=== PATIENT | female | born 1945 | race Caucasian/White ===

== ENCOUNTER 2016-10-28 18:16 | Emergency (ER) | payer MEDICARE, OTHER ==
[2016-10-28 22:51] LABS: HEMOGLOBIN 14.1 gm/dl (12.3-15.3); RED BLOOD COUNT 4.55 M/UL (4.00-5.10)
[2016-10-28 23:16] LABS: BUN/CREATININE RATIO 16 (0-10)
[2016-12-11] MEDS ORDERED: COREG 3.125M3.125 MG PO (08:28)
[2016-12-11] MEDS ORDERED: KLONOPIN TAB 00.5 MG PO (08:28)
[2016-12-11] MEDS ORDERED: NORCO 10-325 T1 EACH PO (08:29)
[2016-12-11] MEDS ORDERED: SARAFEM20 MG PO (08:29)
[2016-12-11] MEDS ORDERED: LISINOPRIL2.5 MG PO (08:30)
[2016-12-11] MEDS ORDERED: SYNTHROID 25 M25 MCG PO (08:30)
[2016-12-11] MEDS ORDERED: OMEPRAZOLE40 MG PO (08:31)
[2016-12-11] MEDS ORDERED: ZANTAC150 MG PO (08:32)
[2016-12-11] MEDS ORDERED: SIMVASTATIN40 MG PO (08:32)
[2016-12-11] MEDS ORDERED: ZOFRAN4 MG PO (08:33)
== END 2016-10-29 03:47 | disposition home or self-care (01) ==
LOC: ER1 18:16
PROVIDERS: Student in an Organized Health Care Education/Training Program
DX: N30.01 Acute cystitis with hematuria (principal); R10.84 Generalized abdominal pain; I10 Essential (primary) hypertension; E03.9 Hypothyroidism, unspecified; J44.9 Chronic obstructive pulmonary disease, unspecified; F17.210 Nicotine dependence, cigarettes, uncomplicated; Z88.0 Allergy status to penicillin; Z88.8 Allergy status to other drugs, medicaments and biological substances; Z90.49 Acquired absence of other specified parts of digestive tract; Z85.3 Personal history of malignant neoplasm of breast; Z79.899 Other long term (current) drug therapy
CPT/HCPCS: 36415; 71010; 80053; 81001; 82272; 82550; 82553; 83874; 84484; 85025; 85610; 85730; 93005; 94664; 96361; 96365; 96375; 99284; J2270; J2405; J2930; J7030; J7050; Q9962

== ENCOUNTER → 2016-12-11 | Day surgery (SDC) | payer MEDICARE, OTHER ==
[~2016-12-11] MED LIST: COREG 3.125M3.125 MG PO; KLONOPIN TAB 00.5 MG PO; LISINOPRIL2.5 MG PO; NORCO 10-325 T1 EACH PO; OMEPRAZOLE40 MG PO; SARAFEM20 MG PO; SIMVASTATIN40 MG PO; SYNTHROID 25 M25 MCG PO; ZANTAC150 MG PO; ZOFRAN4 MG PO
== END | disposition home or self-care (01) ==
LOC: OR 06:37
PROVIDERS: Internal Medicine Gastroenterology
PROC: 0DJD8ZZ Inspection of Lower Intestinal Tract, Via Natural or Artificial Opening Endoscopic (ICD-10-PCS; principal; 2016-12-11 10:30)
DX: K56.69 Other intestinal obstruction (principal); K56.5 Intestinal adhesions [bands] with obstruction (postinfection); K57.30 Diverticulosis of large intestine without perforation or abscess without bleeding; K64.0 First degree hemorrhoids; I25.10 Atherosclerotic heart disease of native coronary artery without angina pectoris; Z88.0 Allergy status to penicillin; Z88.2 Allergy status to sulfonamides; Z85.3 Personal history of malignant neoplasm of breast; Z87.19 Personal history of other diseases of the digestive system; Z79.891 Long term (current) use of opiate analgesic; Z79.899 Other long term (current) drug therapy; Z95.5 Presence of coronary angioplasty implant and graft; Z90.49 Acquired absence of other specified parts of digestive tract; Z95.0 Presence of cardiac pacemaker
CPT/HCPCS: J2250; J7030

== ENCOUNTER → 2017-01-21 | Outpatient (CLI) | payer MEDICARE, OTHER | LOC: HEART 5 13:44 | DX: J44.9 Chronic obstructive pulmonary disease, unspecified (principal) | CPT/HCPCS: 94060; 94729 ==

== ENCOUNTER → 2017-02-14 | Outpatient (CLI) | payer MEDICARE, OTHER | LOC: KOH-I 13:14 | DX: F17.210 Nicotine dependence, cigarettes, uncomplicated (principal) | CPT/HCPCS: G0297 ==

== ENCOUNTER 2021-03-17 17:30 | Emergency (ER) | payer MEDICARE, OTHER ==
[~2021-03-17 17:30] MED LIST changes: +ASPIRIN CHEWABL81 MG PO; +ATORVASTATIN CA20 MG PO; +COZAAR25 MG PO; +HYDROCHLOROTH12.5 M1 PO; +ISOSORBIDE MONO30 MG PO; +MACROBID 100 M100 MG PO; +MAGNESIUM250 M1 PO; +PLAVIX75 MG PO; +PROAIR HFA8.5 GM INH; +PROTONIX 40 MG40 M1 PO; +SINGULAIR10 MG PO; +TIZANIDINE HCL2 M1 PO; +VITAMIN D250000 UNIT PO
[2021-03-17 19:17] LABS: HEMOGLOBIN 10.3 gm/dl (12.3-15.3); RED BLOOD COUNT 3.58 M/UL (4.00-5.10); WHITE BLOOD COUNT 7.2 K/UL (4.5-11.0)
[2021-03-17 19:41] LABS: BUN/CREATININE RATIO 20 (0-10)
== END 2021-03-17 21:00 | disposition home or self-care (01) ==
LOC: ER1 17:30
PROVIDERS: Family Medicine
DX: S09.90XA Unspecified injury of head, initial encounter (principal); S13.4XXA Sprain of ligaments of cervical spine, initial encounter; S33.5XXA Sprain of ligaments of lumbar spine, initial encounter; S23.3XXA Sprain of ligaments of thoracic spine, initial encounter; S50.812A Abrasion of left forearm, initial encounter; S60.511A Abrasion of right hand, initial encounter; I11.0 Hypertensive heart disease with heart failure; I50.20 Unspecified systolic (congestive) heart failure; Z86.73 Personal history of transient ischemic attack (TIA), and cerebral infarction without residual deficits; F17.200 Nicotine dependence, unspecified, uncomplicated; Z79.82 Long term (current) use of aspirin; W19.XXXA Unspecified fall, initial encounter; Y92.009 Unspecified place in unspecified non-institutional (private) residence as the place of occurrence of the external cause
CPT/HCPCS: 70450; 71045; 72125; 72128; 72131; 72170; 80053; 82550; 82553; 83874; 84484; 85025; 93005; 99284

== ENCOUNTER 2021-04-12 18:14 | Emergency (ER) | payer MEDICARE, OTHER ==
[2021-04-12 21:22] LABS: HEMOGLOBIN 11.2 gm/dl (12.3-15.3); RED BLOOD COUNT 3.99 M/UL (4.00-5.10)
[2021-04-12 21:46] LABS: BUN/CREATININE RATIO 16 (0-10)
[2021-04-13] MEDS ORDERED: ACID-PEP20 MG PO (00:09)
== END 2021-04-13 00:15 | disposition left against medical advice (07) ==
LOC: ER1 18:14
PROVIDERS: Physician Assistant
DX: K21.9 Gastro-esophageal reflux disease without esophagitis (principal); I10 Essential (primary) hypertension; F17.210 Nicotine dependence, cigarettes, uncomplicated; Z86.73 Personal history of transient ischemic attack (TIA), and cerebral infarction without residual deficits; Z90.49 Acquired absence of other specified parts of digestive tract; Z79.01 Long term (current) use of anticoagulants; Z79.02 Long term (current) use of antithrombotics/antiplatelets; Z88.0 Allergy status to penicillin; Z88.2 Allergy status to sulfonamides
CPT/HCPCS: 80053; 81001; 82550; 82553; 83690; 84484; 85025; 93005; 99284

== ENCOUNTER → 2022-03-22 | Outpatient (CLI) | payer MEDICARE, OTHER ==
[~2022-03-22] MED LIST changes: +ACID-PEP20 MG PO
== END ==
LOC: EXRD 03-19 08:30
DX: Z78.0 Asymptomatic menopausal state (principal); M81.0 Age-related osteoporosis without current pathological fracture
CPT/HCPCS: 77080